=== PATIENT | male | born 2000 | race Caucasian/White ===

== ENCOUNTER 2020-02-15 18:10 | Emergency (ER) | payer OTHER ==
[~2020-02-15] VITALS: Ht 190.5 cm; Wt 66.2 kg
[2020-02-15 18:15] VITALS: BP 91/63
--- NOTE | 2020-02-15 18:30 | NUR ---
PT C/O CONSTANT PRESSURE-LIKE LEFT-SIDED CP RADIATING TO THE LEFT-SIDED POSTERIOR NECK, LEFT SHOULDER & LEFT UPPER BACK X 3 DAYS. PT WENT TO [facility] FOR SAME S/S 5 MONTHS AGO AND HAD EKG WITH NORMAL FINDINGSL. MEDICAL MARIJUANA USED X 2 YEARS. STOP SMOKING MARIJUANA X 1 WEEK. PT ALSO REPORTS SOB EXACERBATED BY EXERTION OR HEAVY EXERCISE. PT IS NOT ABLE TO IDENTIFY ANY FACTORS THAT EXACERBATED OR ALLEVIATED THE CP. DENIES COUGH, FEVER, SORE THROAT, RUNNY NOSE, N/V/D, ABDOMINAL PAIN, RECENT TRAVEL, OR SICK CONTACTS. PATIENT STATES PAIN OF 2/10 AT THIS TIME; VSS; PATIENT POSITIONED FOR COMFORT; HOB ELEVATED; BEDRAILS UP X1; BED DOWN. ER MD MADE AWARE OF PT STATUS.
--- NOTE | 2020-02-15 18:57 | NUR ---
Pt report given to EVONNE Rowe. Transfer of care at this time.
--- NOTE | 2020-02-15 19:00 | NUR ---
TPt report RECEIVED FROM EVONNE EDMOND. ASSUMED care OF PT at this time.
--- NOTE | 2020-02-15 19:12 | NUR ---
PT SITTING UP IN BED AWAKE, CALM, BED LOW AND LOCKED, 1 SIDERAIL UP, VSS, WILL CONTINUE TO MONITOR.
--- NOTE | 2020-02-15 19:55 | NUR ---
LAB AT BEDSIDE
[2020-02-15 20:08] LABS: BASOPHILS # (AUTO) 0.1 K/uL (0.00-0.22); BASOPHILS % (AUTO) 2.1 % (0.0-2.0); EOSINOPHILS # (AUTO) 0.1 K/uL (0-0.4); HEMATOCRIT 44.9 % (36-52); HEMOGLOBIN 15.3 g/dL (12.0-18.0); LYMPHOCYTES # (AUTO) 1.5 K/uL (2.0-11.5); MEAN CORPUSCULAR HEMOGLOBIN 31 pg (27-31); MEAN CORPUSCULAR HGB CONC 34 g/dL (33-37); MEAN CORPUSCULAR VOLUME 92.2 fL (80-94); MONOCYTES # (AUTO) 0.6 K/uL (0.8-1.0); NEUTROPHILS # (AUTO) 4.4 K/uL (1.8-7.7); NEUTROPHILS % (AUTO) 65.9 % (42.2-75.2); PLATELET COUNT (AUTO) 222 K/uL (140-450); RED BLOOD CELL COUNT(AUTO) 4.87 MIL/uL (4.20-6.10); RED CELL DISTRIBUTION WIDTH 14.1 % (11.6-13.7); WHITE BLOOD COUNT (AUTO) 6.7 K/uL (4.8-10.8)
[2020-02-15 20:12] LABS: ANION GAP 13.4 (8-16); CARBON DIOXIDE 33.3 mmol/L (21-32); CREATININE 1.2 mg/dL (0.6-1.3); POTASSIUM 4.7 mmol/L (3.5-5.1)
[2020-02-15 20:19] LABS: ALBUMIN 3.1 g/dL (3.4-5.0); TOTAL BILIRUBIN 0.6 mg/dL (0.0-1.0)
--- NOTE | 2020-02-15 20:30 | NUR ---
PT SITTING UP IN BED AWAKE, CALM, BED LOW AND LOCKED, 1 SIDERAIL UP, VSS, WILL CONTINUE TO MONITOR.
[2020-02-15 20:34] VITALS: BP 118/61
--- NOTE | 2020-02-15 20:34 | NUR ---
DPatient discharged with v/s stable. Written and verbal after care instructions given and explained. Patient alert, oriented and verbalized understanding of instructions. Ambulatory with steady gait. All questions addressed prior to discharge. ID band removed. Patient advised to follow up with PMD. Rx of NAPROSYN given. Patient educated on indication of medication including possible reaction and side effects. Opportunity to ask questions provided and answered.
== END 2020-02-15 20:34 | disposition home or self-care (01) ==
LOC: MED 18:10
DX: R07.9 Chest pain, unspecified (principal); F41.9 Anxiety disorder, unspecified; F12.10 Cannabis abuse, uncomplicated
CPT/HCPCS: 36415; 71045; 80053; 85025; 85379; 93005; 99285

== ENCOUNTER 2020-02-16 23:55 | Emergency (ER) | payer OTHER ==
[~2020-02-16] VITALS: Ht 190.5 cm; Wt 77.1 kg
--- NOTE | 2020-02-17 00:13 | NUR ---
PT TAKEN TO BED 7 WITH STEADY GAIT.
--- NOTE | 2020-02-17 00:18 | NUR ---
EKG BEING DONE AT BEDSIDE.
[2020-02-17 00:23] VITALS: BP 129/78
[2020-02-17] MEDS ORDERED: LORazepam 1 MG TAB PO ONE (00:25)
--- NOTE | 2020-02-17 00:25 | NUR ---
PT 20 Y/O MALE BIB SELF FOR C/O CHEST PAIN. CHEST PAIN IS STERNAL 6/10 WITH "SHARP TIGHTNESS." PAIN RADIATES TO L SIDE OF NECK, L SHOULDER, L ARM. PT ADMITS TO SMOKING WEED DAILY. PT STATES HE HAS HAD CHEST PAIN INTERMITTENTLY X 1 WEEK. PT RESPIRATIONS ARE EVEN AND UNLABORED. SKIN IS WARM AND DRY TO TOUCH. VSS. MEDHX: ANXIETY ALLERGIES: NKA
--- NOTE | 2020-02-17 00:27 | NUR ---
bedside triage donein bed 7. Pt care to Paty DOUGLASS.
--- NOTE | 2020-02-17 00:37 | NUR ---
ATIVAN 1MG GIVEN PO. PT ABLE TO SWALLOW WITHOUT DIFFICULTY. WILL CONTINUE TO MONITOR.
--- NOTE | 2020-02-17 01:15 | NUR ---
PT RESTING IN BED EYES OPEN AND LOOKING AT PHONE. RESPONSIVE TO VERBAL STIMULI. RESPIRATIONS ARE EVEN AND UNLABORED. PT STATES PAIN IS 0/10. "I FEEL BETTER."
--- NOTE | 2020-02-17 02:20 | NUR ---
RESOURCES FOR SUBSTANCE ABUSE GIVEN.
[2020-02-17 02:25] VITALS: BP 122/83
== END 2020-02-17 02:25 | disposition home or self-care (01) ==
LOC: MED 23:55
DX: M25.512 Pain in left shoulder (principal); M54.2 Cervicalgia; F12.10 Cannabis abuse, uncomplicated
CPT/HCPCS: 93005; 99283